=== PATIENT | female | born 1980 ===

== ENCOUNTER 2022-07-08 07:30 | Day surgery (SDC) | payer OTHER ==
[~2022-07-08 07:30] MED LIST: Lactated Ringers 1,000 ML IV SCH; Lidocaine 1% with EPINEPHrine 1:100,000 10 ML MDV ONE; Lidocaine 1%/Sod Bicarbonate in NS 8.4% 1 ML Syringe IDERM PRN; Sodium Chloride 0.9% 10 ML Syringe FLUSH PRN; Sodium Chloride 0.9% 10 ML Syringe FLUSH SCH; Sodium Chloride 0.9% 50 ML SDV ONE
[2022-07-08] MEDS ORDERED: Ondansetron 4 MG/2 ML SDV ONE (07:48)
[2022-07-08] MEDS ORDERED: Lidocaine 1% 5 ML VIAL ONE (07:48)
[2022-07-08] MEDS ORDERED: Rocuronium 50 MG/5 ML Vial ONE (07:48)
[2022-07-08] MEDS ORDERED: ceFAZolin 2 GM Vial ONE (07:48)
[2022-07-08] MEDS ORDERED: Dexmedetomidine 200 MCG/2 ML SDV ONE (07:48)
[2022-07-08] MEDS ORDERED: Dexamethasone 4 MG/ML 5 ML MDV ONE (07:48)
[2022-07-08] MEDS ORDERED: Propofol 200 MG/20 ML SDV ONE ×3 (07:49→10:38)
[2022-07-08] MEDS ORDERED: Ketamine 500 mg/10 ML MDV ONE (07:50)
[2022-07-08] MEDS ORDERED: fentaNYL 100 MCG/2 ML SDV IVPUSH PRN (08:01)
[2022-07-08] MEDS ORDERED: Ondansetron 4 MG/2 ML SDV IVPUSH PRN ×2 (08:01→10:57)
[2022-07-08] MEDS ORDERED: HYDROmorphone 0.5 MG/0.5 ML Syringe IVPUSH PRN (08:01)
[2022-07-08] MEDS ORDERED: Scopolamine 1.5 MG Transdermal Patch TOP SCH (08:02)
[2022-07-08] MEDS ORDERED: Sugammadex Sodium 200 MG/2 ML VIAL ONE (08:10)
[2022-07-08] MEDS ORDERED: Midazolam 1 MG/ML 2 ML SDV ONE (08:11)
[2022-07-08] MEDS ORDERED: fentaNYL 100 MCG/2 ML SDV ONE (10:08)
[2022-07-08] MEDS ORDERED: Lactated Ringers 1,000 ML ONE (10:23)
[2022-07-08] MEDS ORDERED: Ketorolac 30 MG/ML SDV ONE (10:32)
[2022-07-08] MEDS ORDERED: Acetaminophen/oxyCODONE 325-5 MG Tab PO PRN (10:57)
[2022-07-08] MEDS ORDERED: Ibuprofen 600 MG Tab PO PRN (16:30)
== END 2022-07-08 13:20 | disposition home or self-care (01) ==
LOC: JD.SDS 07:30
PROVIDERS: ATTEND Obstetrics & Gynecology
DX: D25.2 Subserosal leiomyoma of uterus (principal); D27.0 Benign neoplasm of right ovary; N84.1 Polyp of cervix uteri; Z98.890 Other specified postprocedural states; Z79.899 Other long term (current) drug therapy
CPT/HCPCS: 36415; 58262; 81025; 86850; 86900; 86901; A9270; J0690; J1100; J1885; J2250; J2405; J2704; J3010; J3490; J7120